=== PATIENT | female | born 1970 | race Caucasian/White ===

== ENCOUNTER 2016-08-05 10:27 | Day surgery (SDC) | payer OTHER ==
--- NOTE | 2016-08-04 17:41 | GHP ---
[f rep st] PREOP HISTORY AND PHYSICAL DATE OF ADMISSION: 08/05/2016 PROBLEM: Status post right tibia fracture with retained hardware. HISTORY OF PRESENT ILLNESS: The patient is a 45-year-old woman admitted for hardware removal from t he right tibia. She sustained a right tibia fracture in March of 2015. She underwent insertion of an IM francy at [facility] in [facility]. Her fracture has healed. She continues to have pain in the anterior medial aspect of her knee. She has had 1 cortisone injection in the ar ea of the proximal interlocking screw which has been a source of irritation. She is using Aleve. T jaswant knee is painful every day. She will undergo hardware removal. PAST MEDICAL HISTORY: She is in excellent general health. No history of heart disease, DVT, hepati tis, or sleep apnea. CURRENT MEDICATIONS: None. DRUG ALLERGIES: None. SOCIAL HISTORY: The patient is . She works in the [employer] department at [employer]. She does not smoke cigarettes and occasionally drinks alcohol. FAMILY HISTORY: Negative. PHYSICAL EXAMINATION: GENERAL: She is a healthy-appearing woman. VITAL SIGNS: Height 5 feet 1 in ch. Weight 118 pounds. BMI 22.3. EYES: The conjunctivae and sclerae are clear. Pupils are round and reactive. MOUTH: Good oral hygiene. No loose teeth. CHEST: Clear. HEART: Regular rhythm. No murmurs. EXTREMITIES: Pertinent findings are limited to her right leg. She has good range of motion of her knee and ankle. Her cruciate and collateral ligaments are stable. She is tender ove r the medial edge of her patellar tendon right at the joint line. No intra-articular effusion in th e knee. Her films show an interlocking nail in the tibia. Her fracture is completely healed. She has 2 dis madie interlocking screws and 1 proximal interlocking screw. There is a free screw in the lateral asp ect of the tibial plafond which is separate from the IM francy. She will undergo hardware removal from the right tibia. This will involve removal of the transfixio n screws and the IM francy. I have advised her there is a small possibility that it will be technicall y impossible to get the francy out. There is also a chance that removal of the francy will not eliminate the pain that she is experiencing around the front of the knee. I am not going to attempt to remove the free screw in the tibial plafond. The surgery has been described to her including the risks, complications, expectations, and recovery time. I have advised her that I will be weakening the tibia by removal of the francy and that she keshia l have to be careful with her activities for a couple of months. All her questions have been answer ed, and she consents to surgery. /[id number]/MODL
[~2016-08-05 10:27] MED LIST: BUPIVACAINE/EPI 0.5% 30 ML SDV ONE; POLYMYXIN B SULFATE 500,000 UNIT/10 ML SYR IRR ONE; ceFAZolin 2 GM/DEXTROSE 100 ML IV ONE
[2016-08-05] MEDS ORDERED: CEFAZOLIN 2 GM/DEXTROSE/100 ML BAG IV ONE (11:07)
[2016-08-05] MEDS ORDERED: LIDOCAINE 1% 5 ML SDV ID PRN (12:16)
[2016-08-05] MEDS ORDERED: MIDAZOLAM 2 MG/2 ML VIAL ONE (12:23)
[2016-08-05] MEDS ORDERED: fentaNYL 250 MCG/5 ML INJ ONE (12:37)
[2016-08-05] MEDS ORDERED: LIDOCAINE 2% JELLY 5 ML TUBE ONE (12:38)
[2016-08-05] MEDS ORDERED: ONDANSETRON 4 MG/2 ML VIAL ONE ×2 (12:38→17:16)
[2016-08-05] MEDS ORDERED: LIDOCAINE 2% 5 ML SDV ONE (12:38)
[2016-08-05] MEDS ORDERED: PROPOFOL 200 MG/20 ML VIAL ONE (12:38)
[2016-08-05] MEDS ORDERED: DEXAMETHASONE 4 MG/ML VIAL ONE ×2 (12:38)
[2016-08-05] MEDS ORDERED: fentaNYL 100 MCG/2 ML INJ ONE ×2 (14:43→16:07)
--- NOTE | 2016-08-05 15:34 | GOP ---
[f rep st] OPERATIVE REPORT DATE OF OPERATION: 08/05/2016 SURGEON: Rashaad Smith MD MACHINE STAMPER: Norberto Ferrell, PAC. ANESTHESIA: General. ANESTHESIOLOGIST: Dr. Ortega Carter. PREOPERATIVE DIAGNOSIS: Status post intramedullary nailing with an interlocking nail of the right t ibia with healed fracture and retained hardware. POSTOPERATIVE DIAGNOSIS: Status post intramedullary nailing with an interlocking nail of the right tibia with healed fracture and retained hardware. PROCEDURE PERFORMED: Hardware removal from the right tibia. FINDINGS: DESCRIPTION OF PROCEDURE: The patient was given 2 g of preoperative IV Ancef. She was placed supin e on the operating room table and given general anesthesia by Dr. Carter. Her right lower extremity was prepped with ChloraPrep from the upper thigh tourniquet to the tips of the toes. It was draped free using sterile sheets, towels, and stockinette. The leg was exsanguinated with elevation and a 6-inch compressive wrap, and the pneumatic tourniquet was inflated to 250 mmHg. The time-out procedure was performed to verify the correct patient identity and the correct surgical side and site. I used the FluoroScan sterilely at the start of the procedure to isolate the distal interlocking scr ews. I made 1 cm longitudinal incisions over the localized point of the screws. Using blunt dissec tion, identified the heads of the 2 distal screws. The screwdriver was engaged, and both screws wer e removed without difficulty. I then reopened the anterior medial short incision for the proximal interlocking screw. I used shefali p dissection down to the head of the screw. The screw was identified, and the screwdriver was engag ed. The screw was removed without difficulty. I then reopened the 2 inch incision on the medial aspect of the patellar tendon. Subcutaneous tissu es were sharply divided. I cut through the fascia just along the medial border of the patellar tend on. I used a quarter-inch drill to drill a hole in the proximal tibia right at the anterior lip of the joint line. This allowed me to localize the proximal end of the intramedullary nail. I then us ed a rongeur to enlarge the hole. The end cap in the proximal end of the IM francy was identified. I had to remove some bone and soft tissue around that to expose it. It was then backed out with a scr ewdriver. The extractor was then threaded down into the threads of the proximal end of the nail. Once it was fully engaged, I used a slap hammer to tap the IM francy out. It came out without any difficulty. She had a small free-standing screw in the tibial plafond. I did not attempt to remove that screw. I had advised her preoperatively that I would not be removing that screw. It is not causing any pr oblem. At this point, the tourniquet was deflated. Total tourniquet time was 47 minutes. The procedure wa s completed without the tourniquet. All of the wounds were irrigated with saline. The deep fascia of the incision over the front of the knee was closed with a running 2-0 Vicryl suture. Subcutaneou s tissues of the long incision were closed with interrupted 3-0 Monocryl sutures. The skin of the m ain incision and the skin of the puncture wounds was closed with interrupted 4-0 nylon vertical mally ress sutures. The skin edges were injected with 10 cc of 0.5% Marcaine with epinephrine. The wounds were covered with Xeroform gauze and flat 4x4's. The distal ankle area was wrapped with a Kerlix, and the knee w as wrapped with a Kerlix. The knee was also wrapped with a 6-inch compressive wrap. The hardware was cleaned and given to the patient. The estimated blood loss was 50 cc or less. There were no recognized intraoperative complications. Mally Ferrell acted as the surgical elastic knitter. His assistance was a medical necessity. /[id number]/MODL
[2016-08-05] MEDS ORDERED: OXYCODONE/APAP 5/325 TAB ONE ×2 (16:18→17:16)
== END 2016-08-05 18:35 | disposition home or self-care (01) ==
LOC: FSGY 10:27
PROVIDERS: ATTEND Orthopaedic Surgery
PROC: 0QPG04Z Removal of Internal Fixation Device from Right Tibia, Open Approach (ICD-10-PCS; principal; 2016-08-05 12:15)
DX: T84.84XA Pain due to internal orthopedic prosthetic devices, implants and grafts, initial encounter (principal); M25.561 Pain in right knee; S82.301S Unspecified fracture of lower end of right tibia, sequela
CPT/HCPCS: J0690; J1100; J2250; J2405; J2704; J3010

== ENCOUNTER → 2016-11-18 | Outpatient (CLI) | payer OTHER | LOC: FIMAGING 08:22 | PROVIDERS: ATTEND Obstetrics & Gynecology | DX: Z12.31 Encounter for screening mammogram for malignant neoplasm of breast (principal) | CPT/HCPCS: G0202 ==